=== PATIENT | female | born 1985 | race Two or more races ===

== ENCOUNTER → 2018-01-31 | Outpatient (CLI) | payer OTHER ==
[~2018-01-31] MED LIST: ACET325T9 PO; CAPS56.614 TP; IBUP200T44 PO; LEVO1TBD PO; LORA10TA68 PO; MULT1TAB52 PO; PREG150C PO; lidocaine patch
--- NOTE | 2018-01-31 13:19 | PAIN ---
DATE OF SERVICE: 01/31/2018 CHIEF COMPLAINT: Low back and left lower extremity pain. HISTORY OF PRESENT ILLNESS: This is a 32-year-old female who presents with history of pain since about 06/2016 for about 9 months in the low back and radiating to the right posterior gluteus, posterior thigh, posterior knee, posterior calf with some throbbing and numbness in the foot as well as in the sole of the foot and the heel on the left side. The patient reports it is not a result of any specific injury or accident she is aware of. It had been getting worse gradually. 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 She admits taking care of patients, lifting patients, moving them, etc., which has caused the pain to increase and now radiating to the left lower extremity. The patient did have epidural steroid injections in August and November of this year at outside facilities as she is a and reports they did help significantly by about 75% or better each time. The patient reports she has also had physical therapy, chiropractic treatment, does exercises every day as well as some trigger point injections were not significantly helpful and physical therapy is not as helpful during it, but she is doing the physical therapy stretches still. The patient reports it awakens her from sleep at night about once or twice a night. The patient sleeps on her left side, but not every night. The patient reports it does not affect her bowel or bladder control, does not affect her ability to walk. She has no motor weakness fatigability of the left leg with activity, but no overt weakness or loss of function of the left leg. The patient reports pain is constant, sharp, shooting with numbness and radiating pain, cramping, aching in the back into the left lower extremity as described. The patient rates her disability rate from 0-10, 10 being the worst, is an 8 with family and home responsibilities, 9 with recreation, 5 with social activity, sexual behavior and self-care, 8 with life support activities and 6 with occupational activities. She did have an MRI scan of the lumbar spine, which is dated 01/2017 showing L5-S1 possible mass on the left, favored to represent extruded nucleus pulposus with surrounding inflammation. PAST MEDICAL HISTORY: Significant for gastroesophageal reflux, headaches. Otherwise, the patient has been in very good health. PREVIOUS SURGERY: Include x 2, bilateral tubal ligation and LASIK procedure. CURRENT MEDICATIONS: Include Lyrica, Claritin, multivitamins, Motrin, Tylenol, lidocaine patch, Zostrix, magnesium. ALLERGIES: The patient has no known drug allergies. FAMILY HISTORY: Significant for hypertension, diabetes, hyperlipidemia, breast cancer. SOCIAL HISTORY: The patient does not smoke, drinks alcohol 1-2 drinks a month on average. Does not use any illegal, illicit or recreational drugs. She is , lives with her spouse and 2 children living at home, lives locally in [place], [place] and again, the patient is a registered nurse. REVIEW OF SYSTEMS: Positive for those items mentioned in history of present illness. All systems reviewed and otherwise negative. It is complete, full and well documented on the patient's chart. PHYSICAL EXAMINATION: VITAL SIGNS: The patient blood pressure 140/95, pulse 77, respirations 18, temperature 97.9 degrees Fahrenheit, height is 5 feet 3 inches, weight is 164 pounds. GENERAL: The patient is awake, alert, oriented, appropriate, very pleasant demeanor. HEENT: Head shows normocephalic, atraumatic. Extraocular movements are intact and symmetrical. Oral cavity: Mucous membranes moist and pink. Dentition is intact. NECK: Shows anterior throat supple without palpable lymphadenopathy noted. Swallow reflex is symmetrical. CHEST: Shows normal with inspection. Breath sounds clear to auscultation bilaterally. HEART: Shows S1, S2 clear. No murmurs auscultated. ABDOMEN: Soft, nontender, nondistended. No palpable organomegaly is noted. No rebound or guarding demonstrated. BACK: Shows spine grossly in the midline. Normal appearing thoracic and lumbar lordotic curvatures. Lumbar paraspinous musculature shows symmetrical on inspection, on palpation shows some moderate tenderness, but only diffusely in the low lumbar distribution, slightly more on the left than the right, but no asymmetry, no trigger points, no radiation of pain. The patient has good rotational motion of lumbar spine, both laterally greater than 10 degrees right and left as well as extension greater than 10 degrees, forward flexion 45 degrees without pain reported. No tenderness over the sacrum or sacroiliac regions. LOWER EXTREMITIES: Show deep tendon reflexes at 2+ in the patellar, 1+ tendo calcaneus tendons are equal. Motor exam is strong with 5/5 dorsiflexion and extension, quadriceps and hamstring flexion are symmetrical. Peripheral pulses are 1+ posterior tibia. No peripheral edema is noted bilaterally. Lower extremities are warm and dry to touch, equal in color and appearance. Straight leg raising noted to be mildly positive on the left at about 45 degrees, but decreased with knee flexion, right side is negative. Gaenslen's and Bladimir's maneuvers are negative bilaterally. The patient is able to stand, stand on her toes without difficulty or loss of balance, walks with a normal appearing gait, not using any assistive devices to ambulate. SKIN: Shows warm and dry, good turgor. No edema. No sores, rashes or bruising noted. IMPRESSION: 1. This is a 32-year-old female who presents with history of about 9 months of low back and left lower extremity pain in radicular fashion. 2. MRI scan of lumbar spine as noted. 3. History of gastroesophageal reflux. PLAN: Options were discussed with the patient including conservative medical management, physical therapy, interventional techniques and she would like to pursue interventional techniques. We discussed lumbar epidural steroid injections. 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 We will wait for preauthorization. The patient in the meantime will continue doing stretching and strengthening exercises daily and once her approval is obtained, we will have her return for lumbar epidural steroid injection at that time. LUIS FERNANDO TAMAYO MD DR: GISSELL/girma JOB#: [id number] / [id number]
== END | disposition home or self-care (01) ==
LOC: PNCL 08:26
PROVIDERS: ATTEND Anesthesiology
DX: M51.27 Other intervertebral disc displacement, lumbosacral region (principal); M54.17 Radiculopathy, lumbosacral region; M79.605 Pain in left leg; K21.9 Gastro-esophageal reflux disease without esophagitis
CPT/HCPCS: 99214

== ENCOUNTER → 2018-03-02 | Outpatient (CLI) | payer OTHER ==
[~2018-03-02] MED LIST changes: +IOHEXOL 180 MG/ML 10 ML VIAL. ONE; +LIDOCAINE 2% PF 2ML VIAL. ONE; +methylPREDNISolone ACETATE 40 MG/ML VIAL. ONE; +methylPREDNISolone ACETATE 80 MG/ML VIAL. ONE; +tumeric
--- NOTE | 2018-03-02 11:49 | PAIN ---
DATE OF SERVICE: 03/02/2018 PROGRESS NOTE FOR PAIN CLINIC DIAGNOSES: Lumbar radiculopathy with lumbar degenerative disk disease and lumbar herniated disk. HISTORY OF PRESENT ILLNESS: The patient is a 33-year-old female who returns for followup status post previous evaluation and preauthorization for lumbar epidural steroid injection. The patient returns today with her authorization, wishing to proceed. The patient reports pain in low back, left lower extremity, mostly in the posterior gluteus, posterior thigh, posterior calf and ankle to the left side. The patient reports it is about 8 on a scale of 10 at its worst, 6 on average, 4 at its least and is a 4 today. The patient reports it is aching, sharp, dull, shooting, tingling with some cramping in the left leg as well and increased numbness. The patient reports it is on and off in intensity, awakens her from sleep occasionally but not every night. The patient reports no new motor or sensory deficits and no new bowel or bladder incontinence or other complaints. PHYSICAL EXAMINATION: VITAL SIGNS: The patient's blood pressure 133/89, pulse 76, respirations 16, temperature 97.7 degrees Fahrenheit and weight 163 pounds. GENERAL: The patient is awake, alert, oriented, appropriate and very pleasant demeanor. HEENT: Head shows normocephalic and atraumatic. Extraocular movements are symmetrical. Oral cavity, mucous membranes are moist and pink. Dentition intact. NECK: Shows anterior throat supple without palpable lymphadenopathy noted. Swallow reflex symmetrical. CHEST: Shows normal on inspection. Breath sounds clear to auscultation bilaterally. HEART: Shows S1 and S2 clear. No murmurs auscultated. ABDOMEN: Soft, nontender and nondistended. No palpable organomegaly is noted. No rebound or guarding demonstrated. BACK: Shows spine grossly in the midline. Normal-appearing thoracic kyphosis and lumbar lordotic curvature. Lumbar paraspinous muscle shows symmetrical on inspection and palpation shows some moderate tenderness bilaterally but only diffusely in the low lumbar distribution without radiation. The patient has full rotational motion of the lumbar spine, both laterally as well as extension and flexion without difficulty. EXTREMITIES: The patient's lower extremities show deep tendon reflexes at 2+ in the patellar, 1+ tendo-calcaneus tendons are equal. Motor exam is strong with 5/5 dorsiflexion, extension and symmetrical. Peripheral pulses are 1+ posterior tibial. No peripheral edema is noted bilaterally. Options were discussed with the patient. The patient's old chart was reviewed as well as her current medication regimen updated. Current review of systems updated today as well and we will proceed with a lumbar epidural steroid injection today with fluoroscopic guidance. Risks were again discussed including, but not limited to bleeding, infection, possibility of epidural hematoma, subsequent neurological compromise, dural puncture, headaches, spinal cord and/or nerve damage, side effects of steroid medication and poor results regarding pain control. The patient understands and wished to proceed. The patient will return to the clinic in approximately 2 weeks for followup, was counseled as to return appointment, activity level and side effects to be aware of. DIAGNOSES: Lumbar radiculopathy with lumbar degenerative disk disease and lumbar herniated disk. PROCEDURE: Lumbar epidural steroid injection, translaminar approach, L5-S1 level using C-arm fluoroscopic guidance under sterile prep and drape using local anesthetic. MEDICATION INJECTED: A total of 120 mg Depo-Medrol plus 10 mL of preservative-free normal saline and 2 mL of Isovue for contrast. CONDITION AT DISCHARGE: Stable. The patient tolerated the procedure well and had no complications. LUIS FERNANDO TAMAYO MD DR: GISSELL/girma JOB#: [id number] / [id number]
== END | disposition home or self-care (01) ==
LOC: PNCL 07:54
PROVIDERS: ATTEND Anesthesiology
DX: M51.16 Intervertebral disc disorders with radiculopathy, lumbar region (principal)
CPT/HCPCS: 62323; J1030; J1040; J2001; Q9965

== ENCOUNTER → 2018-04-13 | Outpatient (CLI) | payer OTHER ==
[~2018-04-13] MED LIST changes: -IOHEXOL 180 MG/ML 10 ML VIAL. ONE; -LIDOCAINE 2% PF 2ML VIAL. ONE; -methylPREDNISolone ACETATE 40 MG/ML VIAL. ONE; -methylPREDNISolone ACETATE 80 MG/ML VIAL. ONE
--- NOTE | 2018-04-13 11:38 | PAIN ---
DATE OF SERVICE: 04/13/2018 PROGRESS NOTE FOR PAIN CLINIC DIAGNOSIS: Lumbar radiculopathy with lumbar degenerative disk disease and lumbar herniated disk. HISTORY OF PRESENT ILLNESS: The patient is a 33-year-old female who returns for followup status post lumbar epidural steroid injection x 1. The patient reports about 100% improvement for about the first 6 weeks following the injection, is still doing very well. The patient reports the pain is returning, however, over the last few days in the low back and left lower extremity, mostly in the posterior gluteus, posterior thigh radiating into the knee and posterior calf occasionally, but only with walking, standing and changing positions. The patient reports it does not awaken her from sleep at night, better with sitting or lying down, worse with standing and walking, again position change usually from sitting to standing. The patient reports it is a 5 on a scale of 10 at its worst, 1 on average and 0 at its least and is a 1 today. The patient reports it is sharp and shooting, radiating pain in the left side is noted in the left leg. The patient reports no new motor or sensory deficits, no new bowel or bladder incontinence. She was initially increasing her activities, distance walking, work activities, household activities as well as traveling with greater ease and comfort. PHYSICAL EXAMINATION: VITAL SIGNS: The patient's blood pressure 122/88, pulse 75, respirations 16, temperature 98.3 degrees Fahrenheit, height is 5 feet 3 inches, weight 162 pounds. GENERAL: The patient is awake, alert, oriented, appropriate, very pleasant demeanor. HEENT: Head shows normocephalic, atraumatic. Extraocular movements are intact and symmetrical. Oral cavity: Mucous membranes are moist and pink. Dentition is intact. NECK: Shows anterior throat supple without palpable lymphadenopathy noted. Swallow reflex is symmetrical. CHEST: Shows normal on inspection. Breath sounds are clear to auscultation bilaterally. HEART: Shows S1, S2 clear. No murmurs auscultated. ABDOMEN: Soft, nontender, nondistended. No palpable organomegaly is noted. No rebound or guarding demonstrated. BACK: Shows spine grossly in the midline. Normal appearing thoracic kyphosis and lumbar lordotic curvature. Lumbar paraspinous muscle shows symmetrical on inspection, with palpation shows some moderate tenderness bilaterally diffusely in the low lumbar distribution without radiation. The patient has good rotational motion of lumbar spine, both laterally as well as extension and flexion without significant difficulty. No tenderness over the spinous processes, sacrum or sacroiliac regions. EXTREMITIES: Lower extremities show deep tendon reflexes 2+ in the patellar, 1+ tendo-calcaneus tendons. Motor exam is strong with 5/5 dorsiflexion, extension, quadriceps and hamstring flexion. Peripheral pulses are 1+ posterior tibia. No peripheral edema is noted bilaterally. The patient has a mild straight leg raise, which is positive on the left side at about 45 degrees, but it was relieved completely with knee flexion, right side is negative. Options were discussed with the patient. The patient's old chart was reviewed as her current medication regimen updated. Current review of systems updated today as well and we will preauthorize the patient for a second lumbar epidural steroid injection if she is going to have increased radicular symptoms in the left lower extremity in L5-S1 dermatomal distribution with history of a herniated L5-S1 disk on the left side with significant improvement after the first injection. The patient will continue with physical therapy exercises. She is also working on daily walking as well. We encouraged her to maintain these in the meantime. We will wait for preauthorization and have her return in approximately 2 weeks, plan on lumbar epidural steroid injection #2 at that time. LUIS FERNANDO TAMAYO MD DR: GISSELL/girma JOB#: [id number] / [id number]
== END | disposition home or self-care (01) ==
LOC: PNCL 08:20
PROVIDERS: ATTEND Anesthesiology
DX: M51.16 Intervertebral disc disorders with radiculopathy, lumbar region (principal)
CPT/HCPCS: 99212

== ENCOUNTER → 2018-07-10 | Outpatient (CLI) | payer OTHER ==
[~2018-07-10] MED LIST changes: +IOHEXOL 180 MG/ML 10 ML VIAL. ONE; +methylPREDNISolone ACETATE 40 MG/ML VIAL. ONE; +methylPREDNISolone ACETATE 80 MG/ML VIAL. ONE
--- NOTE | 2018-07-10 20:22 | PAIN ---
DATE OF SERVICE: 07/10/2018 DIAGNOSES: 1. Lumbar radiculopathy with lumbar degenerative disk disease. 2. Lumbar herniated disk. HISTORY OF PRESENT ILLNESS: The patient is a 33-year-old female who returns for followup status post lumbar epidural steroid injection x 1 with very good improvement, about 100%, that was in 02/2018. The patient did very well, reports pain is returning now in the low back, left lower extremity, posterior gluteus, posterior thigh, posterior calf, radiating more noticeably, still not to the point where it was back in February, but is aching and dull; described as shooting and radiating, becoming more constant, more severe with walking, standing, changing positions; better with sitting or lying down; does not awaken her from sleep at night. The patient reports initially she increased her distance walking, doing work activities, household activities with much greater ease and comfort as well as traveling with comfort. The patient reports it as 7 on a scale of 10 at its worst now, 3 on average, 0 at its least and 3 today. The patient reports no new motor or sensory deficits, no new bowel or bladder incontinence or other complaints. PHYSICAL EXAMINATION: VITAL SIGNS: The patient's blood pressure is 136/90, pulse 76, respirations 18, temperature is 98.4 degrees. Height is 5 feet 3 inches, weight is 171 pounds. GENERAL: The patient is awake, alert, oriented, appropriate, very pleasant demeanor. HEENT: Normocephalic, atraumatic. Extraocular muscles are intact and symmetrical. Oral cavity: Mucous membranes moist and pink. Dentition is intact. NECK: Shows anterior throat supple without palpable lymphadenopathy noted. Swallow reflex symmetrical. CHEST: Shows normal on inspection. Breath sounds clear to auscultation bilaterally. HEART: Shows S1, S2 clear. No murmurs auscultated. ABDOMEN: Soft, nontender, nondistended. No palpable organomegaly is noted. No rebound or guarding demonstrated. BACK: Shows spine grossly in the midline. Normal-appearing thoracic kyphosis and lumbar lordotic curvature. Lumbar paraspinous muscle shows symmetrical on inspection. On palpation shows some moderate tenderness bilaterally, but only diffusely without significant radiation. EXTREMITIES: The patient's lower extremities show deep tendon reflexes 2+ in the patellar, 1+ tendo-calcaneus tendons are equal. Motor exam is strong with 5/5 dorsiflexion, extension, quadriceps and hamstring flexion and symmetrical bilaterally. Peripheral pulses are 1+. No peripheral edema is noted. ASSESSMENT AND PLAN: Options were discussed with the patient. The patient's old chart was reviewed as was her current medication regimen updated. Current review of systems updated today as well. We will proceed with second in a series of lumbar epidural steroid injection today with fluoroscopic guidance. Risks were again discussed including, but not limited to bleeding, infection, possibility of epidural hematoma and subsequent neurological compromise, dural puncture, headaches, spinal cord and/or nerve damage, side effects of steroid medication and poor results regarding pain control. The patient understands and wished to proceed. The patient will return to clinic in approximately 2 weeks for followup. Was counseled as to activity level as well as side effects to be aware of. DIAGNOSES: 1. Lumbar radiculopathy with lumbar degenerative disk disease. 2. Lumbar herniated disk. PROCEDURE: Lumbar epidural steroid injection, translaminar approach L5-S1 level using C-arm fluoroscopic guidance under sterile prep and drape using local anesthetic. MEDICATION INJECTED: A total of 120 mg Depo-Medrol plus 10 mL of preservative-free normal saline and 2 mL of Isovue for contrast. CONDITION AT DISCHARGE: Stable. The patient tolerated the procedure well, had no complications. LUIS FERNANDO TAMAYO MD DR: GISSELL/girma JOB#: [id number] / [id number]
== END | disposition home or self-care (01) ==
LOC: PNCL 13:42
PROVIDERS: ATTEND Anesthesiology
DX: M51.16 Intervertebral disc disorders with radiculopathy, lumbar region (principal)
CPT/HCPCS: 62323; J1030; J1040; Q9965